=== PATIENT | female | born 1960 | race Caucasian/White ===

== ENCOUNTER 2018-02-17 07:38 | Observation (INO) | payer OTHER, MEDICAID ==
[2018-02-17] VITALS (10 sets, daily range): BP systolic 90–119; BP diastolic 52–63; PULSE 67–96; RESP 14–18; TEMP 97.8–100.7; O2SAT 92–96
[~2018-02-17] VITALS: Ht 177.8 cm; Wt 70.0 kg
[~2018-02-17 07:38] MED LIST: AMBI10TA PO; B COTAB3 PO; CALC-179 PO; CEPH500C3 PO; CLON1TAB PO; CYMB60CA PO; FISH100020 PO; FLAX10008 PO; LORA-392 PO; LYRI50CA2 PO; MAGN250T13 PO; PERC10TA27 PO; SIMV20 PO; SYMB160A INH; THEO200T11 PO; TOPI100 PO; VENTAER INH; ZAFI1TAB2 PO; ZINC100T PO
[2018-02-17] MEDS ORDERED: SODIUM CHLORIDE 0.9% FLUSH 10 ML FLUSH IVF PRN (08:00)
[2018-02-17 08:22] LABS: AUTOMATED NEUTROPHIL # 6.6 TH/MM3 (1.8-7.7); BASOPHIL # 0.1 TH/MM3 (0-0.2); BASOPHIL % 0.9 % (0.0-2.0); EOSINOPHIL # 0.2 TH/MM3 (0-0.4); HEMATOCRIT 35.5 % (35.0-46.0); HEMOGLOBIN 11.6 GM/DL (11.6-15.3); LYMPH % 22.6 % (9.0-44.0); LYMPHOCYTE # 2.1 TH/MM3 (1.0-4.8); MEAN CELL VOLUME 89.7 FL (80.0-100.0); MEAN CORPUSCULAR HEMOGLOBIN 29.3 PG (27.0-34.0); MEAN CORPUSCULAR HGB CONC 32.6 % (32.0-36.0); MEAN PLATELET VOLUME 7.8 FL (7.0-11.0); MONO % 5.1 % (0.0-8.0); MONOCYTE # 0.5 TH/MM3 (0-0.9); NEUT % 69.4 % (16.0-70.0); PLATELET COUNT 342 TH/MM3 (150-450); RED BLOOD COUNT 3.95 MIL/MM3 (4.00-5.30); RED CELL DISTRIBUTION WIDTH 18.6 % (11.6-17.2); WHITE BLOOD COUNT 9.5 TH/MM3 (4.0-11.0)
[2018-02-17 08:29] LABS: INTERNATIONAL NORMALIZED RATIO 0.9 RATIO; PROTHROMBIN TIME - PATIENT 9.4 SEC (9.8-11.6)
[2018-02-17] MEDS ORDERED: COLA100C5 PO (08:34)
[2018-02-17] MEDS ORDERED: GABA300C5 PO (08:34)
[2018-02-17] MEDS ORDERED: NOVOINJ3 SQ (08:34)
[2018-02-17] MEDS ORDERED: MSIR15 PO (08:34)
[2018-02-17] MEDS ORDERED: PRED20 PO (08:34)
[2018-02-17] MEDS ORDERED: DULO1CAP3 PO (08:34)
[2018-02-17] MEDS ORDERED: CETI10CH CHEW (08:34)
[2018-02-17] MEDS ORDERED: BENZ1CAP54 PO (08:34)
[2018-02-17] MEDS ORDERED: ALPR0.25 PO (08:34)
[2018-02-17] MEDS ORDERED: LANTUS2P SQ (08:34)
[2018-02-17] MEDS ORDERED: MORP1TAB24 PO (08:34)
[2018-02-17] MEDS ORDERED: ALBUAER3 INH (08:34)
[2018-02-17 08:37] LABS: BICARBONATE 29.7 MEQ/L (21.0-32.0); BLOOD UREA NITROGEN 13 MG/DL (7-18); CALCIUM 7.5 MG/DL (8.5-10.1); CHLORIDE 110 MEQ/L (98-107); CREATININE 0.58 MG/DL (0.50-1.00); GLOMERULAR FILTRATION RATE 108 ML/MIN (>89); GLUCOSE,RANDOM 100 MG/DL (74-106); MAGNESIUM 2.4 MG/DL (1.5-2.5); SODIUM (NA) 143 MEQ/L (136-145)
[2018-02-17 08:42] LABS: TROPONIN I LESS THAN 0.02 NG/ML (0.02-0.05)
--- NOTE | 2018-02-17 09:19 | RADRPT ---
EXAM DATE/TIME: 02/17/2018 08:28 [facility] COMPARISON: No previous studies available for comparison. INDICATIONS : Chest pain. MEDICAL HISTORY : Chronic obstructive pulmonary disease. Multiple sclerosis. Diabetes. SURGICAL HISTORY : Cholecystectomy. Tubal ligation. ENCOUNTER: Initial ACUITY: 1 day PAIN SCORE: Non-responsive. LOCATION: Bilateral chest FINDINGS: PA and lateral views of the chest demonstrate the lungs to be symmetrically aerated without evidence of mass, infiltrate or effusion. The cardiomediastinal contours are unremarkable. Osseous structure s are intact. CONCLUSION: No acute disease. Josh Aldrich MD on February 17, 2018 at 9:17 Board Certified Radiologist. This report was verified electronically.
--- NOTE | 2018-02-17 09:35 | PD ---
HPI . Chest pain Chief Complaint: Chest Pain Time Seen by Provider: 07:43 Travel History International Travel<30 days: No Contact w/Intl Traveler<30days: No Traveled to known affect area: No History of Present Illness HPI This patient was brought to us by [facility] from a rehab facility for chest pain. The chest pain occurred at 7 AM while she was smoking a cigarette. The rehab facility treated her with aspirin and nitroglycerin with complete resolution of her chest pain. She has remained pain-free in our department. In addition, the patient has had her usual morphine which she takes because of an orthopedic problem. PFSH Past Medical History Arthritis: Yes Blood Disorders: No Cardiovascular Problems: No COPD: Yes Cerebrovascular Accident: Yes (TIA) Diabetes: Yes Patient Takes Glucophage: Yes Diminished Hearing: Yes (deaf right ear) Diverticulitis: Yes Fibromyalgia: Yes Gastrointestinal Disorders: Yes Genitourinary: No Musculoskeletal: Yes (Siatica, bludging discs, Fx Lumbar vertebra) Neurologic: Yes (MS, poss brain tumors) Reproductive: No Respiratory: Yes ?: Not Menopausal: Yes : 1 Para: 1 Tubal Ligation: Yes Past Surgical History Abdominal Surgery: Yes (GALL BLADDER REMOVAL) Section: Yes Cholecystectomy: Yes Other Surgery: Yes Social History Alcohol Use: No Tobacco Use: Yes (0.5 ppd) Substance Use: No Allergies-Medications (Allergen,Severity, Reaction): Coded Allergies: Sulfa (Sulfonamide Antibiotics) (Unverified Adverse Reaction, Severe, Nausea/Vomiting, 07/04/17) Reported Meds & Prescriptions Reported Meds & Active Scripts Active Reported Prednisone 20 Mg Tab 20 Mg PO BID Novolog Flexpen Inj (Insulin Aspart) 300 Unit/3 Ml Pen 1 Units SQ Morphine IR (Morphine Sulfate) 15 Mg Tab 15 Mg PO Q4H PRN Morphine ER (Morphine Sulfate) 15 Mg Tab 15 Mg PO Q8H Lantus Inj (Insulin Glargine) 1,000 Unit/10 Ml Vial 15 Units SQ HS Gabapentin 300 Mg Cap 300 Mg PO BID Duloxetine DR (Duloxetine HCl) 60 Mg Capdr 60 Mg PO DAILY Colace (Docusate Sodium) 100 Mg Capsule 100 Mg PO HS Cetirizine (Cetirizine HCl) 10 Mg Chew 10 Mg CHEW DAILY Benzonatate 100 Mg Cap 200 Mg PO TID PRN Alprazolam 0.25 Mg Tab 0.25 Mg PO Q8H PRN Proair Hfa 8.5 GM Inh (Albuterol Sulfate) 90 Mcg/Act Aer 1 Puff INH Q4H PRN 108 mcg/actuation Review of Systems Except as stated in HPI: all other systems reviewed are Neg Physical Exam Narrative GENERAL: Patient has been resting comfortably since she got here. SKIN: warm/dry. HEAD: Normocephalic. Atraumatic. EYES: Pupils equal and round. No scleral icterus. No injection or drainage. ENT: No nasal bleeding or discharge. Mucous membranes pink and moist. NECK: Trachea midline. Full range of motion without pain.. CARDIOVASCULAR: Regular rate and rhythm. Heart sounds are normal. RESPIRATORY: No accessory muscle use. Clear to auscultation. Breath sounds equal bilaterally. MUSCULOSKELETAL: No obvious deformities. NEUROLOGICAL: Awake and alert. No obvious cranial nerve deficits. Motor grossly within normal limits. Normal speech. PSYCHIATRIC: Appropriate mood and affect; insight and judgment normal. Data Data Last Documented VS Vital Signs Date Time Temp Pulse Resp B/P (MAP) Pulse Ox O2 Delivery O2 Flow Rate FiO2 02/17/18 09:36 89 18 100/62 (75) 95 Room Air 02/17/18 07:52 98.2 Orders Orders Basic Metabolic Panel (Bmp) (02/17/18 07:55) Complete Blood Count With Diff (02/17/18 07:55) Magnesium (Mg) (02/17/18 07:55) Prothrombin Time / Inr (Pt) (02/17/18 07:55) Act Partial Throm Time (Ptt) (02/17/18 07:55) Troponin I (02/17/18 07:55) Ecg Monitoring (02/17/18 07:55) Iv Access Insert/Monitor (02/17/18 07:55) Oximetry (02/17/18 07:55) Sodium Chloride 0.9% Flush (Ns Flush) (02/17/18 08:00) Chest, Pa & Lat (02/17/18 07:55) Labs Laboratory Tests Test 02/17/18 08:00 White Blood Count 9.5 TH/MM3 Red Blood Count 3.95 MIL/MM3 Hemoglobin 11.6 GM/DL Hematocrit 35.5 % Mean Corpuscular Volume 89.7 FL Mean Corpuscular Hemoglobin 29.3 PG Mean Corpuscular Hemoglobin Concent 32.6 % Red Cell Distribution Width 18.6 % Platelet Count 342 TH/MM3 Mean Platelet Volume 7.8 FL Neutrophils (%) (Auto) 69.4 % Lymphocytes (%) (Auto) 22.6 % Monocytes (%) (Auto) 5.1 % Eosinophils (%) (Auto) 2.0 % Basophils (%) (Auto) 0.9 % Neutrophils # (Auto) 6.6 TH/MM3 Lymphocytes # (Auto) 2.1 TH/MM3 Monocytes # (Auto) 0.5 TH/MM3 Eosinophils # (Auto) 0.2 TH/MM3 Basophils # (Auto) 0.1 TH/MM3 CBC Comment AUTO DIFF Differential Total Cells Counted 100 Neutrophils % (Manual) 57 % Band Neutrophils % 12 % Lymphocytes % 21 % Monocytes % 4 % Eosinophils % 5 % Basophils % 1 % Neutrophils # (Manual) 6.6 TH/MM3 Differential Comment FINAL DIFF MANUAL Platelet Estimate NORMAL Platelet Morphology Comment NORMAL Red Cell Morphology Comment NORMAL Prothrombin Time 9.4 SEC Prothromb Time International Ratio 0.9 RATIO Activated Partial Thromboplast Time 21.2 SEC Blood Urea Nitrogen 13 MG/DL Creatinine 0.58 MG/DL Random Glucose 100 MG/DL Calcium Level 7.5 MG/DL Magnesium Level 2.4 MG/DL Sodium Level 143 MEQ/L Potassium Level 3.8 MEQ/L Chloride Level 110 MEQ/L Carbon Dioxide Level 29.7 MEQ/L Anion Gap 3 MEQ/L Estimat Glomerular Filtration Rate 108 ML/MIN Troponin I LESS THAN 0.02 NG/ML MDM Medical Decision Making Medical Screen Exam Complete: Yes Emergency Medical Condition: Yes Interpretation(s) EKG shows a normal sinus rhythm with no acute ischemic change Differential Diagnosis Differential diagnosis of chest pain includes but is not limited to musculoskeletal pain, pulmonary embolism, acute coronary syndrome, pneumonia, pleurisy Narrative Course This patient presented to us with chest pain which have been relieved by aspirin and nitroglycerin which were given at her rehab center. She has remained pain-free here. CBC & BMP Diagram 02/17/18 08:00 Calcium Level 7.5 L, Magnesium Level 2.4 trop < 0.02 Last Impressions Chest X-Ray 02/17/18 0755 Signed Impressions: Service Date/Time: Saturday, February 17, 2018 08:28 - CONCLUSION: No acute disease. Josh Aldrich MD This patient will be admitted to the chest pain center for further evaluation. Diagnosis Primary Impression: Chest pain Qualified Codes: R07.9 - Chest pain, unspecified Admitting Information Admitting Physician Requests: Observation Condition: Stable Juli Coughlin MD Feb 17, 2018 09:35
[2018-02-17 09:40] LABS: BANDS 12 % (0-6); BASOPHILS 1 % (0-2); LYMPHOCYTES 21 % (9-44); MONOCYTES 4 % (0-8); NEUTROPHIL # MANUAL DIFF 6.6 TH/MM3 (1.8-7.7); POLYS (SEG NEUTROPHILS) 57 % (16-70)
[2018-02-17] MEDS ORDERED: ACETAMINOPHEN 500 MG CPLT PO PRN (10:45)
[2018-02-17] MEDS ORDERED: NITROGLYCERIN 0.4 MG SL 25 TABS/BTL SL PRN (10:45)
[2018-02-17] MEDS ORDERED: ONDANSETRON HCL 4 MG/2 ML VIAL IV PUSH PRN (10:45)
--- NOTE | 2018-02-17 11:56 | HHI.HP ---
[facility] Primary Care Physician Mari Davalos Do, MD Chief Complaint Chest pain History of Present Illness 57 year old female with history of COPD and TIA's presents to ER for further evaluation of sudden onset chest pain. Onset 7am while smoking a cigarette. Location slightly left of sternum. Characterized as sharp, "deep pain" initially then quickly changing as "someone sitting on my whole chest." Radiation to midback. Associated symptoms diaphoresis and hurting to take a deep breath. Slight dyspnea, nausea, or vomiting. Duration 30-40 seconds. No known precipitating or relieving factors. Denies pain in the past. No recent illness, cough, or fever. No known coronary artery disease. Currently she living in a rehabilitation facility for reportedly generalized pain from severe osteoporosis. Endorses recent hospitalization at [facility] due to generalized pain due to osteoporosis. She quickly quit smoking the cigarette , wheeled herself into Rehab facility, notified from dest of chest pain, and staff called [facility]. Patient is a poor historian, frequency falling to sleep during interview. When asked why she is so drowsy, states "I also drift off and sleepy." Currently is chest pain free. Review of Systems General: No fatigue,weakness, fever, chills, recent illness, or change in appetite. Recently hospitalized [facility] ([place], [place]) for reportedly generalized pain and severe osteoporosis. HEENT: No LEACH, no dysphasia CV: As stated above. No current chest pain or pressure. No palpitations or dizziness. RESP: No SOB, cough, wheeze, or recent respiratory infection. GI: No nausea, vomiting, or bowel changes. : No dysuria, urgency, frequency. Occasional incontinence, wears brief. EXT: Chronic dependent lower leg edema, no paraesthesias MS: Chronic generalized pain during her to use a wheelchair. No recent injury, trauma, or change in ROM NEURO: Reports history of CVA in 2013 however states she thinks she had a TIA. No LOC, motor/sensory deficits PSYCH: No anxiety, depression SKIN: No rashes, no concerning lesions Past Family Social History Allergies: Coded Allergies: Sulfa (Sulfonamide Antibiotics) (Unverified Adverse Reaction, Severe, Nausea/Vomiting, 07/04/17) Past Medical History Fibromyalgia, COPD, diverticulitis, osteoporosis, deaf right ear, CVA (2013), diabetes (she relates to oysterman use of Prednisone, denies being a diabetic) Past Surgical History Cholecystectomy, , tubal ligation, right knee surgery Reported Medications Reported Meds & Active Scripts Active Reported Prednisone 20 Mg Tab 20 Mg PO BID Novolog Flexpen Inj (Insulin Aspart) 300 Unit/3 Ml Pen 1 Units SQ Morphine IR (Morphine Sulfate) 15 Mg Tab 15 Mg PO Q4H PRN Morphine ER (Morphine Sulfate) 15 Mg Tab 15 Mg PO Q8H Lantus Inj (Insulin Glargine) 1,000 Unit/10 Ml Vial 15 Units SQ HS Gabapentin 300 Mg Cap 300 Mg PO BID Duloxetine DR (Duloxetine HCl) 60 Mg Capdr 60 Mg PO DAILY Colace (Docusate Sodium) 100 Mg Capsule 100 Mg PO HS Cetirizine (Cetirizine HCl) 10 Mg Chew 10 Mg CHEW DAILY Benzonatate 100 Mg Cap 200 Mg PO TID PRN Alprazolam 0.25 Mg Tab 0.25 Mg PO Q8H PRN Proair Hfa 8.5 GM Inh (Albuterol Sulfate) 90 Mcg/Act Aer 1 Puff INH Q4H PRN 108 mcg/actuation Active Ordered Medications Current Medications Medications (Trade) Dose Ordered Sig/Veronica Route Start Time Stop Time Status Last Admin (NS Flush) 2 ml UNSCH PRN IVF 02/17/18 08:00 (NS Flush) 2 ml BID IV FLUSH 02/17/18 21:00 (Tylenol) 500 mg Q4H PRN PO 02/17/18 10:45 (Zofran Inj) 4 mg Q6H PRN IV PUSH 02/17/18 10:45 (Nitrostat Sl) 0.4 mg Q5M PRN SL 02/17/18 10:45 (Aspirin) 325 mg DAILY PO 02/18/18 09:00 Social History No known coronary artery disease, hypertension, hyperlipidemia, or diabetes. Reports Lantus daily due to long-term use of prednisone. Current smoker 1/2 pack/daily. Denies alcohol. Currently receiving Rehab, otherwise reports living with her family. Past cardiac testing None Physical Exam Vital Signs Vital Signs Date Time Temp Pulse Resp B/P (MAP) Pulse Ox O2 Delivery O2 Flow Rate FiO2 02/17/18 09:36 89 18 100/62 (75) 95 Room Air 02/17/18 08:55 88 18 99/56 (70) 96 Room Air 02/17/18 08:24 74 18 90/60 (70) 96 Room Air 02/17/18 07:59 18 95 Room Air 02/17/18 07:55 83 18 95 Room Air 02/17/18 07:52 98.2 86 18 94/52 (66) 95 Room Air Physical Exam GENERAL: Alert, drowsy, WN, WD, NAD, pleasant, obese, female who appears older than stated age HEAD: NC, AT EYES: Sclera clear, conjunctiva without injection ENT: Mucous membranes pink and moist NECK: Supple, no masses, trachea midline CV: Heart tones difficult to auscultate due to lung sounds. RRR without murmur. Chest wall nontender with palpation. RESP: Rhonchi with expiratory wheeze throughout bilateral, symmetrical chest rise, nonlabored, able to speak in full sentences ABD: Soft, NT, ND, no masses, positive bowel tones, round, obese EXT: Pulses +24, +2 pitting dependent edema MS: Normal tone 4 extremities, no obvious deformities, full range of motion PSYCH: A+O 3, pleasant affect, appropriate speech, mood, insight and judgment. At times of interview she is a poor historian and drowsy. SKIN: Normal turgor, normal texture, no lesions, no rashes Laboratory Laboratory Tests Test 02/17/18 08:00 White Blood Count 9.5 Red Blood Count 3.95 Hemoglobin 11.6 Hematocrit 35.5 Mean Corpuscular Volume 89.7 Mean Corpuscular Hemoglobin 29.3 Mean Corpuscular Hemoglobin Concent 32.6 Red Cell Distribution Width 18.6 Platelet Count 342 Mean Platelet Volume 7.8 Neutrophils (%) (Auto) 69.4 Lymphocytes (%) (Auto) 22.6 Monocytes (%) (Auto) 5.1 Eosinophils (%) (Auto) 2.0 Basophils (%) (Auto) 0.9 Neutrophils # (Auto) 6.6 Lymphocytes # (Auto) 2.1 Monocytes # (Auto) 0.5 Eosinophils # (Auto) 0.2 Basophils # (Auto) 0.1 CBC Comment AUTO DIFF Differential Total Cells Counted 100 Neutrophils % (Manual) 57 Band Neutrophils % 12 Lymphocytes % 21 Monocytes % 4 Eosinophils % 5 Basophils % 1 Neutrophils # (Manual) 6.6 Differential Comment FINAL DIFF MANUAL Platelet Estimate NORMAL Platelet Morphology Comment NORMAL Red Cell Morphology Comment NORMAL Prothrombin Time 9.4 Prothromb Time International Ratio 0.9 Activated Partial Thromboplast Time 21.2 Blood Urea Nitrogen 13 Creatinine 0.58 Random Glucose 100 Calcium Level 7.5 Magnesium Level 2.4 Sodium Level 143 Potassium Level 3.8 Chloride Level 110 Carbon Dioxide Level 29.7 Anion Gap 3 Estimat Glomerular Filtration Rate 108 Troponin I LESS THAN 0.02 Result Diagram: 02/17/18 0800 02/17/18 0800 Imaging Last 48 hours Impressions Chest X-Ray 02/17/18 0755 Signed Impressions: Service Date/Time: Saturday, February 17, 2018 08:28 - CONCLUSION: No acute disease. Josh Aldrich MD Course EKG NSR, no st t segment changes Caprini VTE Risk Assessment Caprini VTE Risk Assessment: No/Low Risk (score <= 1) Caprini Risk Assessment Model Point Value = 1 Point Value = 2 Point Value = 3 Point Value = 5 Age 41-60 Minor surgery BMI > 25 kg/m2 Swollen legs Varicose veins or History of unexplained or recurrent spontaneous Oral contraceptives or hormone replacement Sepsis (< 1 month) Serious lung disease, including pneumonia (< 1 month) Abnormal pulmonary function Acute myocardial infarction Congestive heart failure (< 1 month) History of inflammatory bowel disease Medical patient at bed rest Age 61-74 Arthroscopic surgery Major open surgery (> 45 min) Laparoscopic surgery (> 45 min) Malignancy Confined to bed (> 72 hours) Immobilizing plaster cast Central venous access Age >= 75 History of VTE Family history of VTE Factor V Leiden Prothrombin [id number] Lupus anticoagulant Anticardiolipin antibodies Elevated serum homocysteine Heparin-induced thrombocytopenia Other congenital or acquired thrombophilia Stroke (< 1 month) Elective arthroplasty Hip, pelvis, or leg fracture Acute spinal cord injury (< 1 month) Prophylaxis Regimen Total Risk Factor Score Risk Level Prophylaxis Regimen 0-1 Low Early ambulation 2 Moderate Order ONE of the following: *Sequential Compression Device (SCD) *Heparin 5000 units SQ BID 3-4 Higher Order ONE of the following medications: *Heparin 5000 units SQ TID *Enoxaparin/Lovenox 40 mg SQ daily (WT < 150 kg, CrCl > 30 mL/min) *Enoxaparin/Lovenox 30 mg SQ daily (WT < 150 kg, CrCl > 10-29 mL/min) *Enoxaparin/Lovenox 30 mg SQ BID (WT < 150 kg, CrCl > 30 mL/min) AND/OR *Sequential Compression Device (SCD) 5 or more Highest Order ONE of the following medications: *Heparin 5000 units SQ TID (Preferred with Epidurals) *Enoxaparin/Lovenox 40 mg SQ daily (WT < 150 kg, CrCl > 30 mL/min) *Enoxaparin/Lovenox 30 mg SQ daily (WT < 150 kg, CrCl > 10-29 mL/min) *Enoxaparin/Lovenox 30 mg SQ BID (WT < 150 kg, CrCl > 30 mL/min) AND *Sequential Compression Device (SCD) Assessment and Plan Assessment and Plan #1 Chest pain-the chest pain center. Rule out with 3 sets of EKGs, cardiac enzymes, and monitor on telemetry. Will be seen and evaluated by Dr. Alfred Allen. Discussed possible chemical stress test after being ruled out. Patient drank coffee this a.m., therefore test would be completed tomorrow morning. Discussed if chemical cardiac testing recommended by Dr. Allen, testing would be completed tomorrow morning due to caffeine intact. Verbalized understanding. #2 Tobacco use-is encouraged and stressed the importance of tobacco cessation. Instructed to quit smoking. #3 COPD-albuterol every 6 hours and every 2 when necessary, first dose now #4 History of chronic pain-will reorder morphine ER and IR once patient more alert, continue to monitor. #5 History of type II diabetes-SSI low dose, hold Lantus at this time due to NPO status after midnight. Will attempt to obtain recent medical records from [facility]. Claudia Elizabeth Feb 17, 2018 11:56
[2018-02-17] MEDS ORDERED: RESP: ALBUTEROL 2.5 MG/3 ML NEB (PRN) NEB (12:00)
[2018-02-17] MEDS: DULoxetine HCl DR 60 MG CAP PO SCH (12:00)
[2018-02-17] MEDS ORDERED: DEXTROSE 50% IN WATER 50 ML VIAL(D50) IV PUSH PRN (12:15)
[2018-02-17] MEDS ORDERED: GLUCAGON 1 MG/ML VIAL OTHER PRN (12:15)
[2018-02-17 12:20] LABS: TROPONIN I LESS THAN 0.02 NG/ML (0.02-0.05)
[2018-02-17] MEDS: RESP: ALBUTEROL 2.5 MG/3 ML NEB (SCH) NEB ×3 (14:39→20:43)
[2018-02-17 14:51] LABS: TROPONIN I LESS THAN 0.02 NG/ML (0.02-0.05)
[2018-02-17] MEDS ORDERED: MORPHINE SULFATE 15 MG TAB PO PRN (16:15)
[2018-02-17] MEDS: INSULIN ASPART SUPPLEMENTAL SCALE SQ SCH ×2 (17:00→21:00)
--- NOTE | 2018-02-17 18:10 | EKG ---
Date Performed: 02/17/2018 Time Performed: 11:54:24 PTAGE: 57 years EKG: Sinus rhythm NORMAL ECG PREVIOUS TRACING : 02/17/2018 07.48 Since previous tracing, no significant change noted DOCTOR: Alfred Allen Interpretating Date/Time 02/17/2018 18:09:49
--- NOTE | 2018-02-17 18:13 | EKG ---
Date Performed: 02/17/2018 Time Performed: 14:29:51 PTAGE: 57 years EKG: Sinus rhythm NORMAL ECG PREVIOUS TRACING : 02/17/2018 11.54 Since previous tracing, no significant change noted DOCTOR: Alfred Allen Interpretating Date/Time 02/17/2018 18:11:54
--- NOTE | 2018-02-17 18:13 | EKG ---
Date Performed: 02/17/2018 Time Performed: 07:48:34 PTAGE: 57 years EKG: Sinus rhythm NORMAL ECG Since PREVIOUS TRACING , no significant change noted DOCTOR: Alfred Allen Interpretating Date/Time 02/17/2018 18:11:40
[2018-02-17] MEDS ORDERED: DOCUSATE SODIUM 100 MG CAP PO SCH (21:00)
[2018-02-17] MEDS: SODIUM CHLORIDE 0.9% FLUSH 10 ML FLUSH IV FLUSH SCH (21:00)
[2018-02-17] MEDS: GABAPENTIN 300 MG CAP PO SCH (22:39)
[2018-02-17] MEDS: predniSONE 20 MG TAB PO SCH (22:39)
[2018-02-17] MEDS: MORPHINE SULFATE 15 MG CONTROLLED RELEASE TAB PO SCH (22:40)
[2018-02-18 03:31] VITALS: BP 112/56; PULSE 92; RESP 16; TEMP 99.5; O2SAT 97
[2018-02-18] MEDS: RESP: ALBUTEROL 2.5 MG/3 ML NEB (SCH) NEB ×2 (03:39→09:30)
[2018-02-18 07:05] VITALS: PULSE 81
[2018-02-18] MEDS: INSULIN ASPART SUPPLEMENTAL SCALE SQ SCH (07:58)
[2018-02-18] MEDS: GABAPENTIN 300 MG CAP PO SCH (07:59)
[2018-02-18] MEDS: DULoxetine HCl DR 60 MG CAP PO SCH (08:00)
[2018-02-18] MEDS: predniSONE 20 MG TAB PO SCH (08:01)
[2018-02-18] MEDS: SODIUM CHLORIDE 0.9% FLUSH 10 ML FLUSH IV FLUSH SCH (08:02)
[2018-02-18 08:07] VITALS: BP 119/77; PULSE 82; RESP 14; TEMP 98; O2SAT 99
[2018-02-18] MEDS: MORPHINE SULFATE 15 MG CONTROLLED RELEASE TAB PO SCH (08:11)
[2018-02-18] MEDS ORDERED: CETIRIZINE HCL 10 MG TAB PO SCH (09:00)
[2018-02-18] MEDS ORDERED: ASPIRIN 325 MG TAB PO SCH (09:00)
[2018-02-18] MEDS ORDERED: REGADENOSON INJ 0.4 MG/5 ML SYR ONE (09:50)
--- NOTE | 2018-02-18 12:26 | RADRPT ---
EXAM DATE/TIME: 02/18/2018 10:09 [facility] COMPARISON: No previous studies available for comparison. INDICATIONS : Substernal chest pain. Angina. DOSE: 25.4 mCi Tc99m Myoview at stress. 8.5 mCi Tc99m Myoview at rest. 0.4 mg Lexiscan STRESS SYMPTOMS: Asymptomatic. EJECTION FRACTION: > 70% MEDICAL HISTORY : Diabetes mellitus type 2. Chronic obstructive pulmonary disease. SURGICAL HISTORY : Tubal ligation. Cholecystectomy. ENCOUNTER: Initial ACUITY: 1 day PAIN SCALE: 5/10 LOCATION: Substernal chest TECHNIQUE: The patient underwent pharmacologic stress with infusion of prescribed dose. Continuous ECG tracing was monitored during stress. Gated SPECT imaging was performed after stress and conventional SPECT i maging was performed at rest. The examination was performed on a SPECT/CT scanner, both attenuation and non-corrected datasets were reviewed. FINDINGS: DISTRIBUTION: The maximum perfused segment at stress is in the anterolateral wall. PERFUSION STUDY: The pattern of perfusion at stress is within normal limits. GATED STUDY: There is intact wall motion and thickening without hypokinetic or dyskinetic segments. CONCLUSION: 1. No fixed or reversible wall defects. 2. Normal wall motion calculated ejection fraction. RISK CATEGORY: Low (<1% Annual Mortality Rate) Josh Aldrich MD on February 18, 2018 at 12:22 Board Certified Radiologist. This report was verified electronically.
--- NOTE | 2018-02-18 13:07 | HHI.DCPOC ---
Discharge Care Plan Diagnosis: (1) Chest pain (2) DM (diabetes mellitus) (3) COPD (chronic obstructive pulmonary disease) (4) Tobacco abuse Goals to Promote Your Health DISCUSS WITH YOUR DOCTOR IF YOU SHOULD BE TAKING CHOLESTEROL MEDICATION WITH HISTORY OF DIABETES. * To prevent worsening of your condition and complications * To maintain your health at the optimal level Directions to Meet Your Goals Take your medications as prescribed Follow your dietary instruction Follow activity as directed Keep your appointments as scheduled Take your immunizations and boosters as scheduled If your symptoms worsen call your PCP, if no PCP go to Urgent Care Center or Emergency Room Smoking is Dangerous to Your Health. Avoid second hand smoke Call the 24-hour hour crisis hotline for domestic abuse at Rodrigo Marinelli Feb 18, 2018 13:07
[2018-02-18 13:18] VITALS: BP 107/58; PULSE 80; RESP 14; TEMP 97.6; O2SAT 93
--- NOTE | 2018-02-18 14:24 | TR ---
Date Performed: 02/18/2018 Time Performed: 10:40:58 DOCTOR: Alfred Allen DRUG LIST: CLINICAL HISTORY: CHEST PAIN REASON FOR TEST: CHEST PAIN REASON FOR ENDING: OBSERVATION: CONCLUSION: Lexiscan stress test was performed under standard four minute protocol. Radionuclid e was injected one minute prior to ending the test. No electrocardiographic abormalities were present to suggest ischemia. Nuclear imaging and interpretation are pending. COMMENTS:
[2018-02-18 16:01] VITALS: BP 130/95; PULSE 82; RESP 16; TEMP 98; O2SAT 98
== END 2018-02-18 16:08 ==
LOC: NEPC 07:38 → NEDA 10:19 → NEPHCDU 12:58
DX: R07.9 Chest pain, unspecified (principal); F17.210 Nicotine dependence, cigarettes, uncomplicated; J44.9 Chronic obstructive pulmonary disease, unspecified; G89.29 Other chronic pain; E11.9 Type 2 diabetes mellitus without complications; M19.90 Unspecified osteoarthritis, unspecified site; Z86.73 Personal history of transient ischemic attack (TIA), and cerebral infarction without residual deficits; K57.92 Diverticulitis of intestine, part unspecified, without perforation or abscess without bleeding; M79.7 Fibromyalgia; Z79.899 Other long term (current) drug therapy; Z79.84 Long term (current) use of oral hypoglycemic drugs; R61 Generalized hyperhidrosis; M81.0 Age-related osteoporosis without current pathological fracture; Z79.52 Long term (current) use of systemic steroids
CPT/HCPCS: 71046; 78452; 80048; 82550; 82552; 82948; 83735; 84484; 85007; 85027; 85610; 85730; 93005; 93017; 94640; 94664; 96372; 99285; A9502; G0378; J1815; J2785; J7512; J7613